=== PATIENT | female | born 1985 | race African-American/Black ===

== ENCOUNTER 2019-09-30 02:46 | Emergency (ER) | payer OTHER ==
[~2019-09-30] VITALS: Ht 165 cm; Wt 78.5 kg
--- NOTE | 2019-09-30 03:00 | ED General ---
General Chief Complaint: General Problems/Pain Stated Complaint: FEVER Source of Information: Patient, Police History of Present Illness Date Seen by Provider: Sep 30, 2019 Time Seen by Provider: 02:48 Initial Comments 33 yo female presents with law enforcement for medical evaluation after having a 99 degree temperature at assisted. She denies having any ill symptoms but has had ill children at home. She denies cough or congestion. She has not been taking any medicine recently. She has not had contact with anyone with known Covid or travel to Covid areas. Allergies and Home Medications Allergies Coded Allergies: No Known Drug Allergies (Unverified , 09/30/19) Patient Home Medication List Home Medication List Reviewed: Yes Review of Systems Review of Systems Constitutional: No chills, No fever EENTM: no symptoms reported Respiratory: no symptoms reported Cardiovascular: no symptoms reported Gastrointestinal: no symptoms reported Genitourinary: no symptoms reported Musculoskeletal: no symptoms reported Skin: no symptoms reported Psychiatric/Neurological: Anxiety (about going to assisted) Hematologic/Lymphatic: No Symptoms Reported Immunological/Allergic: no symptoms reported Past Rvajkka-Yuogvo-Juswsz Hx Past Med/Social Hx: Reviewed Nursing Past Med/Soc Hx Patient Social History Recent Foreign Travel: No Contact w/Someone Who Travel: No Past Medical History Surgeries: No Respiratory: No Cardiac: No Neurological: No Reproductive Disorders: No Genitourinary: No Gastrointestinal: No Musculoskeletal: No Endocrine: No HEENT: No Cancer: No Psychosocial: No Integumentary: No Physical Exam Vital Signs Capillary Refill : Height, Weight, BMI Height: '" Weight: lbs. oz. kg; BMI Method: General Appearance: No Apparent Distress, WD/WN HEENT: PERRL/EOMI, Pharynx Normal Neck: Full Range of Motion, Normal Inspection, Non Tender, Supple Respiratory: Chest Non Tender, Lungs Clear, Normal Breath Sounds, No Accessory Muscle Use, No Respiratory Distress Cardiovascular: Regular Rate, Rhythm, Normal Peripheral Pulses Gastrointestinal: Normal Bowel Sounds, No Pulsatile Mass, Non Tender, Soft Extremity: Normal Capillary Refill, Normal Inspection, Normal Range of Motion, Non Tender, No Calf Tenderness, No Pedal Edema Neurologic/Psychiatric: Alert, Oriented x3, No Motor/Sensory Deficits, Normal 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 Cleared to return to assisted. Departure Impression Primary Impression: Medical clearance for incarceration Disposition: HOME, SELF-CARE Condition: Stable Departure-Patient Inst. Decision time for Depature: 02:58 Referrals: [facility] [place] Patient Instructions: General (DC) Add. Discharge Instructions: Medically stable for incarceration with law enforcement All discharge instructions reviewed with patient and/or family. Voiced understanding. DOMINICK JOHN MD Sep 30, 2019 03:00
[2019-09-30 03:01] VITALS: BP 162/80
== END 2019-09-30 03:02 | disposition home or self-care (01) ==
LOC: ER FS 02:56
DX: R50.9 Fever, unspecified (principal)
CPT/HCPCS: 99283